=== PATIENT | female | born 1975 | race Caucasian/White ===

== ENCOUNTER 2021-05-04 02:05 | Emergency (ER) | payer OTHER ==
[~2021-05-04] VITALS: Ht 165.1 cm; Wt 94.0 kg
--- NOTE | 2021-05-04 02:23 | NUR ---
PT C/O OF DIFFICULTY BREATHING SINCE 2229 LAST NIGHT. DENIES N/V/D, MUSCLE ACHES AND FEVER/CHILL. ATTACHED TO MONITORS, VSS. NADN. BED IN LOW POSITON, RAILS ENGAGED. CALL LIGHT ON LAP.
[2021-05-04] MEDS ORDERED: ALBUTEROL/IPRATROPIUM 2.5MG/0.5MG, 3 ML NPPB ONE (03:00)
[2021-05-04] MEDS ORDERED: ALBUTEROL/IPRATROPIUM 2.5MG/0.5MG, 3 ML ONE (03:01)
--- NOTE | 2021-05-04 03:08 | NUR ---
breathing treatment ongoing. medicated.
--- NOTE | 2021-05-04 03:32 | NUR ---
pt completed breathing tx and stating it is a lot easier to breathe and that she is feeling a lot better. pt stating insurance cut off one of her medications so she is having a lot more flare ups lately.
[2021-05-04 04:00] VITALS: BP 139/94
--- NOTE | 2021-05-04 04:18 | NUR ---
Patient/Caregiver given discharge instructions and they have confirmed that they understand the instructions. Patient ambulatory with steady gait. NAD, all questions answered appropriately, denies additional needs at this time. No personal belongings left in room after discharge.
== END 2021-05-04 04:19 | disposition home or self-care (01) ==
LOC: ED 04:13
DX: J45.41 Moderate persistent asthma with (acute) exacerbation (principal); R06.00 Dyspnea, unspecified; Z90.49 Acquired absence of other specified parts of digestive tract
CPT/HCPCS: 71045; 93005; 94640; 99283; J7512